=== PATIENT | male | born 1995 | race Caucasian/White ===

== ENCOUNTER 2023-10-29 17:05 | Emergency (ER) | payer OTHER ==
[~2023-10-29] VITALS: Ht 190.5 cm; Wt 118.2 kg
[2023-10-29] MEDS: ANEXSIA, NORCO 7.5MG/325MG TABLET(HYDROCODONE/APAP) PO ONE (19:44)
[2023-10-29] MEDS: NORCO 5/325MG TABLET (HOME DOSE PACK) PO ONE (20:00)
[2023-10-29] MEDS ORDERED: HYDR-3713 PO (20:18)
[2023-10-29 20:30] VITALS: BP 144/98; TEMP 99.8; O2SAT 98
== END 2023-10-29 20:49 | disposition home or self-care (01) ==
LOC: EDBD 17:05 → M ED 17:05
DX: M23.42 Loose body in knee, left knee (principal); M25.462 Effusion, left knee; M79.89 Other specified soft tissue disorders; X50.0XXA Overexertion from strenuous movement or load, initial encounter; F17.200 Nicotine dependence, unspecified, uncomplicated; Y92.9 Unspecified place or not applicable; Y93.89 Activity, other specified; Y99.0 Civilian activity done for income or pay; Z79.1 Long term (current) use of non-steroidal anti-inflammatories (NSAID)